=== PATIENT | female | born 1975 | race Caucasian/White ===

== ENCOUNTER 2018-07-23 18:20 | Emergency (ER) | payer SELFPAY ==
[~2018-07-23] VITALS: Ht 172.7 cm; Wt 127.0 kg
[2018-07-23] MEDS ORDERED: NAPROSYN500 MG PO (18:59)
[2018-07-23 19:05] VITALS: BP 142/90
== END 2018-07-23 19:05 | disposition home or self-care (01) | DRG 538 ==
LOC: ED 18:20
DX: S73.102A Unspecified sprain of left hip, initial encounter (principal); M16.12 Unilateral primary osteoarthritis, left hip; W01.0XXA Fall on same level from slipping, tripping and stumbling without subsequent striking against object, initial encounter; Y92.009 Unspecified place in unspecified non-institutional (private) residence as the place of occurrence of the external cause

== ENCOUNTER 2019-01-08 17:59 | Emergency (ER) | payer OTHER ==
[~2019-01-08] VITALS: Ht 172.7 cm; Wt 130.0 kg
[~2019-01-08 17:59] MED LIST: NAPROSYN500 MG PO
[2019-01-08] MEDS ORDERED: PERCOCET 5/325M1 TAB PO (18:43)
[2019-01-08] MEDS ORDERED: AUGMENTIN875TAB PO (18:43)
[2019-01-08 18:45] VITALS: BP 148/80
== END 2019-01-08 18:51 | disposition home or self-care (01) ==
LOC: ED 17:59
DX: H66.91 Otitis media, unspecified, right ear (principal); H92.01 Otalgia, right ear; R50.9 Fever, unspecified